=== PATIENT | female | born 1955 | race Caucasian/White ===

== ENCOUNTER 2018-02-22 18:30 | Emergency (ER) | payer BC ==
[~2018-02-22] VITALS: Ht 167.6 cm; Wt 62.6 kg
[2018-02-22] MEDS ORDERED: cefTRIAXone 1GM/10ml IVPUSH 10 ML IV ONE (21:30)
[2018-02-22] MEDS ORDERED: cefTRIAXone SOD 1,000 MG VL ONE (21:35)
[2018-02-22 21:46] VITALS: BP 126/69
== END 2018-02-22 21:58 | disposition home or self-care (01) ==
LOC: ER 18:30
DX: S61.012A Laceration without foreign body of left thumb without damage to nail, initial encounter (principal); R51 Headache; R11.0 Nausea; Z88.0 Allergy status to penicillin; Z88.1 Allergy status to other antibiotic agents; W26.9XXA Contact with unspecified sharp object(s), initial encounter; Y93.89 Activity, other specified; Y99.8 Other external cause status; Y92.89 Other specified places as the place of occurrence of the external cause
CPT/HCPCS: 12002; 73130; 99284; J0696